=== PATIENT | male | born 1975 | race African-American/Black ===

== ENCOUNTER 2021-04-24 07:45 | Emergency (ER) | payer OTHER, SELFPAY ==
[2021-04-24] VITALS (11 sets, daily range): BP systolic 132–138; BP diastolic 82–86; PULSE 80–92; RESP 12–30; TEMP 36.4; O2SAT 95–100
--- NOTE | 2021-04-24 08:18 | DI.CT_ITS ---
Exam(s) CT ABDOMEN PELVIS WO EXAM: CT ABDOMEN PELVIS WO INDICATION: LUQ abd pain history of Pancreatitis. COMPARISON: No exams were available for comparison TECHNIQUE: CT examination was performed without contrast administration. FINDINGS: Images obtained through the lung bases are unremarkable. Visualized portions of the liver and splee n appear intact. There is peripancreatic fat edema and perhaps small quantity of free fluid adjacent to the pancreatic tail. No gross pancreatic mass or necrosis on this noncontrast study.. Gallbladder and bile ducts are CT normal. Abdominal aorta is of normal diameter. No significant abdominal wall hernia. No significant abdominal or pelvic adenopathy. Adrenals appear normal bilaterally. The kidneys are normal in size and shape. There is no evidence of a renal mass, hydronephrosis, or n ephrolithiasis. No ureteral dilatation or calcification identified. Urinary bladder is unremarkable in appearance. IMPRESSION: Findings suspicious for acute pancreatitis. Please correlate clinically.. RADIATION DOSE DELIVERED: 596.4mGy.cm DLP 596.4mGy.cm Total DLP !Error CTDIvol RADIATION OPTIMIZATION: All CT scans at this facility use at least one of these dose optimization te chniques: automated exposure control; mA and/or kV adjustment per patient size (includes targeted exa ms where dose is matched to clinical indication); or iterative reconstruction.
--- NOTE | 2021-04-24 08:29 | W.ED.GENAD ---
Discharge Plan Disposition Patient Disposition: AGAINST MEDICAL ADVICE Condition: Poor Discharge Details Clinical Impression: Acute alcoholic pancreatitis Primary Care Provider: [facility] ED Provider: Bacilio Alexandra Home Meds and New Rx's Prescriptions: Continued cetirizine 10 mg Tablet 10 mg PO DAILY 0RF folic acid 20 mg Capsule 20 mg PO DAILY 0RF losartan-hydrochlorothiazide 100-25 mg Tablet 1 tab PO DAILY 0RF citalopram 20 mg Tablet 20 mg PO DAILY 0RF metoprolol tartrate 25 mg Tablet 12.5 mg PO DAILY 0RF levetiracetam [Keppra] 1,000 mg Tablet 1,000 mg PO BID 0RF Discharge Instructions Instructions: Pancreatitis (ED) Additional Instructions: After thorough discussion of risk versus benefit you have chosen to leave AGAINST MEDICAL ADVICE. Again please understand that your condition may worsen which could lead to need of emergent surgery, worsening pain, discomfort, irreversible damage, or . It is recommended that you return to emergency department for any new or significant worsening of condition or if you change your mind. Your significant alcohol intake is a large contributing factor to your condition and it is recommended that you safely reduce and stop alcohol intake under the guidance of your primary care provider. It is recommended that you only drink water for the next 24 hours and you may slowly start with rice and very bland food starting tomorrow evening. If this causes any worsening of condition again it is recommended that you return to the emergency department for reevaluation. Discharge Data Discharge Date/Time-TO BE ENTERED AT DEPARTURE: 04/24/21 12:36 Medical Decision Making <Bacilio Alexandra NP - Last Filed: 04/27/21 08:28> Patient presenting to the emergency department for chief complaint of abdominal pain and vomiting. Patient reports that he has had symptoms last 2 days. Does report that they are somewhat similar to previous episode of pancreatitis not completely the same as he has not had as much pain or rigidity to his abdomen. Patient does report history of seizure disorder and previous episode of pancreatitis. At that time he drank significantly more alcohol but now he only drinks 8 beers per day. He does state this episode seemed to worsen with eating. Patient denies fever chills, respiratory or cardiac complaints. Physical exam shows soft abdomen with no rigidity or guarding but there is noted tenderness to both upper quadrant and epigastrium. Plan to check labs and CT imaging given patient's history of pancreatitis and top differential diagnosis at this time is pancreatitis versus alcoholic gastritis. Will treat pain pending results. Review of labs show a nondiagnostic CBC but no white count or shift noted, lactate slightly elevated at 2.0, anion gap of 15.2 with elevated AST and ALT and very slight hypomagnesemia at 1.7. Lipase is within normal limits of 320. UA shows slight urine ketones otherwise nondiagnostic. Spoke to radiologist and there are subtle findings to suggest acute pancreatitis. MPRESSION: Findings suspicious for acute pancreatitis. Please correlate clinically. Given patient's history along with significant alcohol intake I have concern for mild but acute pancreatitis. Discussed findings with patient and patient stated he was unwilling to be admitted at this time. Thoroughly discussed risk versus benefit including possible , surgery, pain, and potential for worsening of condition. Patient is alert and oriented x4 with full competent to make medical decisions. He states that even after discussion of risks that he would prefer to go home. Finished patient's fluids and gave him further pain control while in the emergency department. Informed patient that he is free to return to emergency department if he changes his mind or has any worsening of condition. RS. Patient seen, examined, and discussed with GAURAV Alexandra. I agree with treatment plan as discussed/documented. I had a lengthy conversation with the patient and discussed our recommendations regarding admission for treatment of pancreatitis. Patient provided informed refusal of recommended treatment plan. HPI <Bacilio Alexandra NP - Last Filed: 04/27/21 08:28> General Mode of arrival: ambulatory. Date/Time Provider Initiated Documentation: 04/24/21 08:10. Limitations to Documentation: no limitations. Information obtained by: patient. History of Present Illness 46 year old M presents to the emergency department with the chief complaint of Abd pain , described as severe and similar to prior episodes, with intensity rated at 10. Quality is described as aching and sharp, and is localized to the abdomen. Patient reports no radiation. Patient started experiencing this day(s) (2) and it has been constant. improves with No relieving factors improve symptom(s), Eating worsens symptoms . Patient notes no other symptoms.. Patient did receive the following treatments prior to arrival, other (Tums) Related Data Home Medications Medication Instructions Recorded Confirmed cetirizine 10 mg tablet 10 mg PO DAILY 04/24/21 04/24/21 citalopram 20 mg tablet 20 mg PO DAILY 04/24/21 04/24/21 folic acid 20 mg capsule 20 mg PO DAILY 04/24/21 04/24/21 levetiracetam 1,000 mg tablet 1,000 mg PO BID 04/24/21 04/24/21 (Keppra) losartan 100 1 tab PO DAILY 04/24/21 04/24/21 mg-hydrochlorothiazide 25 mg tablet metoprolol tartrate 25 mg tablet 12.5 mg PO DAILY 04/24/21 04/24/21 Allergies Allergy/AdvReac Type Severity Reaction Status Date / Time Iodine and Iodide Containing Allergy Other (See Verified 04/24/21 08:21 Produc Comment) General Stated Complaint: Abd Prob MATTEO: 3 Review of Systems <Bacilio Alexandra NP - Last Filed: 04/27/21 08:28> Constitutional Constitutional: Denies chills, Denies fever(s) and Reports poor appetite Cardiovascular Cardiovascular: Denies chest pain and Denies dyspnea Respiratory Respiratory: Denies cough and Denies dyspnea Gastrointestinal Gastrointestinal: Reports as per HPI, Reports abdominal pain, Denies melena, Denies change in bowel habits, Denies constipation, Denies diarrhea, Reports nausea and Reports vomiting Genitourinary Genitourinary: Denies hematuria, Denies difficulty urinating, Denies urinary hesitancy, Denies urinary incontinence and Denies urinary urgency Integumentary/Breasts Skin/Breast: Denies rash PFSH <Bacilio Alexandra NP - Last Filed: 04/27/21 08:28> All Active Problems (Updated 04/24/21 @ 11:31 by Bacilio Alexandra NP) Acute alcoholic pancreatitis (Acute) Seizure disorder (Chronic) Medical History (Updated 04/24/21 @ 11:31 by Bacilio Alexandra NP) Pancreatitis Social History Smoking/Tobacco Use Status: Current every day Tobacco Type: cigarettes Smoking risk assessment performed?: Yes Alcohol Intake: current Alcohol Intake frequency: 0-2 drinks per day Alcohol type: beer Substance use type: marijuana Exam <Bacilio Alexandra NP - Last Filed: 04/27/21 08:28> Const General: cooperative Orientation: alert, awake and oriented x3 Resp Effort & Inspection: normal respiratory effort and able to speak in complete sentences Auscultation: clear to auscultation bilaterally Cardio Rate: regular rate Rhythm: regular rhythm Heart Sounds: S1 normal and S2 normal GI Palpation: soft, not firm, no guarding, no masses, no pulsatile masses, not rigid, no splenomegaly and tender in the LUQ, in the RUQ and periumbilically; Negative for Moreno's sign negative Auscultation: normal bowel sounds Neuro General: patient alert, patient awake, patient oriented x3, gait normal and moves all extremities Course <Bacilio Alexandra NP - Last Filed: 04/27/21 08:28> Vital Signs Vital signs: Vital Signs Temperature 36.4 C L 04/24/21 07:54 Pulse 87 04/24/21 07:54 Respiratory Rate 25 H 04/24/21 07:54 Blood Pressure 138/86 04/24/21 07:54 Pulse Oximetry 100 04/24/21 07:54 Temperature 36.4 C L 04/24/21 07:54 Temperature Source Temporal Artery Scan 04/24/21 07:54 Pulse 82 04/24/21 07:58 Respiratory Rate 18 04/24/21 07:58 Respiratory Effort 04/24/21 08:02 Blood Pressure 138/86 04/24/21 07:58 Blood Pressure Position Supine 04/24/21 07:58 Pulse Oximetry 99 04/24/21 07:58 Oxygen Delivery Method Room Air 04/24/21 07:58 Oxygen Flow Rate 0 04/24/21 07:58 Pain Level 10 04/24/21 07:58 PAWSS <Bacilio Alexandra NP - Last Filed: 04/27/21 08:28> Have you Been Recently Intoxicated or Drunk Within the Last 30 days?: No Have you Ever Experienced Previous Episodes of Alcohol Withdrawal?: No Have you ever Experienced Withdrawal Seizures?: No Have you ever Experienced Delirium Tremens(DT)s?: No Have you ever undergone Alcohol Rehabilitation Treatment (i.e, inpt ot outpatient treatment programs)?: No Have you ever Experienced Blackouts?: No Have you ever Combined Alcohol with other Downers within the last 90 days?: No Have you ever Combined Alcohol with any other Substance of Abuse during the last 90 days?: No Positive Blood Alcohol level on Presentation? [PCS.BAL]: No Evidence of Increased Autonomic Activity (i.e. HR>120, tremor, sweating, agitation, nausea)?: No Result: 0 <Alexandru Paez MD - Last Filed: 05/15/21 07:53> Result: 0 Assessment & Plan <Bacilio Alexandra NP - Last Filed: 04/27/21 08:28> Plan Detail Instructions: Pancreatitis (ED) Total time on date of encounter, ([id number] and non [id number]) (minutes): 45 Time was spent: providing direct patient care, ordering diagnostics and/or referrals, documenting today's visit and updating the EMR <Alexandru Paez MD - Last Filed: 05/15/21 07:53> Plan Patient seen, examined, and discussed with GAURAV Alexandra. I agree with treatment plan as discussed/documented. I had a lengthy conversation with the patient and discussed our recommendations regarding admission for treatment of pancreatitis. Patient provided informed refusal of recommended treatment plan.
[2021-04-24 08:31] LABS: Abs Immature Grans 0.02 10^3/uL (0.0-0.06); Absolute Eosinophil Count 0.05 10^3/uL (0.0-0.7); Absolute Lymphocyte Count 1.93 10^3/uL (1.2-3.4); Absolute Monocyte Count 0.52 10^3/uL (0.1-0.8); Absolute Neutrophil Count 4.74 10^3/uL (1.2-6.7); Basophils % 1.4; Eosinophils % 0.7; Immature Grans % 0.3; Lymphocytes % 26.2; MCH 35.3 pg (27.0-33.0); MCV 100.8 fL (80-95); MPV 9.7 fL (8.0-11.0); Monocytes % 7.1; Neutrophils % 64.3; Nucleated RBC 0 %; Platelet Count 316 10^3/uL (130-400); RBC 3.97 10^6/uL (4.36-5.78); RDW 11.5 % (11.8-14.1); RDW-SD 42.2 fL; WBC 7.36 10^3/uL (4.4-10.8)
[2021-04-24] MEDS: HYDROmorphone 2 MG/ML VIAL 1 MG IVP ×2 (08:47→12:12)
[2021-04-24] MEDS: Ondansetron O.D.T. 4 MG TABEF PO (08:48)
[2021-04-24] MEDS: FAMOTIDINE 20 MG in Normal Saline 100 ML 400 MG IVPB (08:48)
[2021-04-24 09:15] LABS: ALT 76 U/L (16-63); AST 100 U/L (15-37); Albumin 4.1 g/dL (3.4-5.0); Alkaline Phosphatase 73 U/L (46-116); Anion Gap 15.2 mmol/L (3-11); BUN 10 mg/dL (7-18); Bilirubin, Total 0.5 mg/dL (0.2-1.0); CO2 23.8 mmol/L (21.0-32.0); CREATININE 0.9 mg/dL (0.70-1.30); Calcium 9.7 mg/dL (8.5-10.1); Chloride 98 mmol/L (98-107); Glucose 151 mg/dL (74-106); Lipase 320 U/L (73-393); Magnesium 1.7 mg/dL (1.8-2.4); Potassium 3.7 mmol/L (3.5-5.1); Sodium 137 mmol/L (136-145); Total Protein 7.6 g/dL (6.4-8.2); Troponin I < 50 ng/L (<or=60)
[2021-04-24 09:24] LABS: Bilirubin Negative (Negative); Blood Negative (Negative); Clarity Clear (Clear); Glucose Negative (Negative); Ketones 40 mg/dL (Negative); Leukocyte Esterase Negative (Negative); Nitrite Negative (Negative); Urobilinogen 0.2 EU/dL (Up TO 0.2); pH 7.5 (5-8)
[2021-04-24] MEDS: Normal Saline 1,000 ML 1000 ML IV (10:00)
== END 2021-04-24 12:36 | disposition left against medical advice (07) ==
PROVIDERS: Emergency Provider Nurse Practitioner Family
DX: K85.20 Alcohol induced acute pancreatitis without necrosis or infection (principal); Z53.29 Procedure and treatment not carried out because of patient's decision for other reasons
CPT/HCPCS: 36415; 80053; 83690; 96361; 96365; 96366; 96375; 96376; 99284; 74176; 81003; 83605; 83735; 84484; 85025

== ENCOUNTER 2021-09-16 22:20 | Emergency (ER) | payer OTHER, SELFPAY ==
[2021-09-16 22:34] VITALS: PULSE 65; RESP 15; TEMP 36.5; O2SAT 98
--- NOTE | 2021-09-16 22:44 | W.ED.GENAD ---
Discharge Plan Disposition Patient Disposition: HOME Condition: Stable Discharge Details Clinical Impression: Seizure disorder, Alcohol withdrawal Primary Care Provider: [facility] ED Provider: Alma Trent Home Meds and New Rx's Prescriptions: Continued cetirizine 10 mg Tablet 10 mg PO DAILY folic acid 20 mg Capsule 20 mg PO DAILY losartan-hydrochlorothiazide 100-25 mg Tablet 1 tab PO DAILY citalopram 20 mg Tablet 20 mg PO DAILY metoprolol tartrate 25 mg Tablet 12.5 mg PO DAILY levetiracetam [Keppra] 1,000 mg Tablet 1,000 mg PO BID Discharge Instructions Instructions: Dizziness (ED), Recurrent Seizures in Adults (ED) Additional Instructions: You were given a dose of your blood pressure medication and your seizure medications here in the department. Please take your seizure medication tomorrow am. Follow up with primary care provider in 3-5 days. Return to ED sooner if any worsening or concerns. Increase oral fluids. Please take Tylenol or Ibuprofen with food every 4-6 hours as needed for pain and swelling. Referrals: [facility] [Primary Care Provider] - 1 week Discharge Data Discharge Date/Time-TO BE ENTERED AT DEPARTURE: 09/17/21 01:32 Medical Decision Making 46-year-old female presents to the ER she is concerned that he may have a seizure. Patient was recently released from correction today for the last 2 days has been incarcerated has not received his blood pressure medication or seizure medication. He reports dizziness and blurry vision. She states is a precursor to seizures. He does normally take Keppra 1 mg p.o. twice daily and losartan or Cozaar 100 mg daily for blood pressure. He denies any other associated symptoms denies any drugs or alcohol recently. Last ETOH was 2 days ago. 1 gm Keppra ordered IV, Losarten 100mg PO ordered. Patient inadvertantly ripped out his IV while using the urinal. He did receive his Keppra IV prior to the IV removal. Patient reports that he began having emesis. He reports vomiting and nausea. Zofran 4 mg ODT, lorazepam 0.5 mg ordered p.o.. 0043: Patient has been having tremors, complaining of nausea, headache, diaphoresis. Suspect alcohol withdrawal. Orders placed for IV and labs. 0144: Patient reevaluation he reports that he feels fine. He would like she be discharged home we will allow him to wait until morning. Lab canceled. Medical Records Medical records reviewed: Yes I reviewed the patient's medical records. HPI General Mode of arrival: EMS. Date/Time Provider Initiated Documentation: 09/16/21 22:32. Limitations to Documentation: no limitations. Information obtained by: patient, EMS, RN notes reviewed and old records reviewed. HPI Narrative: 46-year-old female presents to the ER she is concerned that he may have a seizure. Patient was recently released from correction today for the last 2 days has been incarcerated has not received his blood pressure medication or seizure medication. He reports dizziness and blurry vision. She states is a precursor to seizures. He does normally take Keppra 1 mg p.o. twice daily and losartan or Cozaar 100 mg daily for blood pressure. He denies any other associated symptoms denies any drugs or alcohol recently. He did not drink ETOH since prior to his incarceration. He is a daily smoker. Alert and oriented x4 has no other associated symptoms or complaints. His blood pressure upon arrival was 157/93 Related Data Home Medications Medication Instructions Recorded Confirmed cetirizine 10 mg tablet 10 mg PO DAILY 04/24/21 09/16/21 citalopram 20 mg tablet 20 mg PO DAILY 04/24/21 09/16/21 folic acid 20 mg capsule 20 mg PO DAILY 04/24/21 09/16/21 levetiracetam 1,000 mg tablet 1,000 mg PO BID 04/24/21 09/16/21 (Keppra) losartan 100 1 tab PO DAILY 04/24/21 09/16/21 mg-hydrochlorothiazide 25 mg tablet metoprolol tartrate 25 mg tablet 12.5 mg PO DAILY 04/24/21 09/16/21 Allergies Allergy/AdvReac Type Severity Reaction Status Date / Time Iodine and Iodide Containing Allergy Other (See Verified 09/16/21 22:42 Produc Comment) amlodipine [From [facility]] AdvReac Unverified 09/16/21 22:44 lisinopril AdvReac Unverified 09/16/21 22:44 General Stated Complaint: Dizzy/Sync MATTEO: 3 Review of Systems All systems reviewed & are unremarkable except as noted in HPI and below Constitutional Constitutional: Reports as per HPI and Reports headache(s) ENT Ears, Nose, Mouth, and Throat: Reports dizziness, Reports headache(s) and Reports disequilibrium Gastrointestinal Gastrointestinal: Denies abdominal pain, Reports nausea and Reports vomiting Neurologic Neurologic: Reports as per HPI, Denies confusion, Reports dizziness, Reports headache(s) and Reports disequilibrium Psychiatric Psychiatric: Denies confusion PFSH All Active Problems (Updated 09/17/21 @ 00:23 by Alma Trent NP) Seizure disorder (Chronic) Alcohol withdrawal (Acute) Seizure disorder (Chronic) Medical History Pancreatitis Social History Smoking/Tobacco Use Status: Current every day Tobacco Type: cigarettes Smoking risk assessment performed?: Yes Alcohol Intake: current Alcohol Intake frequency: 0-2 drinks per day Alcohol type: beer Substance use type: marijuana Do you feel safe at home: Yes Do you feel safe in your relationship?: Yes Exam Narrative Exam Narrative: Constitutional: Alert and oriented x3. Appears stated age. Normal body habitus. Head: Normocephalic, no trauma. Eyes: Pupils PERRL, Red reflex noted, EOM's intact. Eyelids symmetrical without lesions, discharge, or swelling. ENT: Bilateral TM's WNL, External ear normal to inspection, no mastoid TTP, swelling, or erythema, Nasal turbinates WNL, no nasal discharge. Normal dentition, Posterior pharynx WNL, no exudate. Chest: RRR, Normal S1, S2, distal pulses intact. Resp: Lungs clear to auscultation bilaterally, no wheezes, rales, or rhonchi. Abdomen: Soft, non-distended, Normoactive bowel sounds all 4 quads. Musculoskeletal: Normal gait, 5/5 strength to all four extremities. Skin: No suspicious rashes or lesions. Capillary refill less than 2 sec. Neurologic: Cranial nerves II-XII intact. Alert and oriented x 3. Motor: No deficits noted. Sensory: Intact bilaterally all 4 extremities. Reflexes: DTR's intact bilaterally.. Hematologic/Lymphatic: No ecchymosis, no lymphadenopathy. Course Vital Signs Vital signs: Vital Signs Temperature 36.5 C 09/16/21 22:34 Pulse 65 09/16/21 22:34 Respiratory Rate 15 09/16/21 22:34 Pulse Oximetry 98 09/16/21 22:34 Temperature 36.5 C 09/16/21 22:34 Temperature Source Skin 09/16/21 22:34 Pulse 65 09/16/21 22:34 Respiratory Rate 15 09/16/21 22:34 Blood Pressure Position Supine 09/16/21 22:34 Pulse Oximetry 98 09/16/21 22:34 Oxygen Delivery Method Room Air 09/16/21 22:34 Oxygen Flow Rate 0 09/16/21 22:34 Pain Level 7 09/16/21 22:34
[2021-09-16] MEDS: Normal Saline 100 ML (23:14)
[2021-09-16] MEDS: Losartan 50 MG TAB 100 MG PO (23:14)
[2021-09-16] MEDS: levETIRAcetam 1,000 MG in Normal Saline 100 ML 400 MG IVPB (23:14)
[2021-09-16 23:33] VITALS: BP 134/86; PULSE 95; RESP 18; TEMP 36.6; O2SAT 95
[2021-09-17] MEDS: LORazepam 0.5 MG TAB PO (00:16)
[2021-09-17] MEDS: Ondansetron O.D.T. 4 MG TABEF PO (00:17)
[2021-09-17] MEDS: Acetaminophen 325 MG TAB 650 MG PO (00:36)
== END 2021-09-17 01:32 | disposition home or self-care (01) ==
PROVIDERS: Emergency Provider Registered Nurse Emergency
DX: G40.909 Epilepsy, unspecified, not intractable, without status epilepticus (principal); F10.239 Alcohol dependence with withdrawal, unspecified; Z91.14 Patient's other noncompliance with medication regimen; R11.2 Nausea with vomiting, unspecified
CPT/HCPCS: 80053; 83690; 96365; 99284; 80320; 83735; 85025; 99283; J1953

== ENCOUNTER 2021-09-20 11:01 | Emergency (ER) | payer OTHER, SELFPAY ==
[2021-09-20 11:06] VITALS: BP 138/93; PULSE 98; RESP 14; TEMP 36.9; O2SAT 99
== END 2021-09-20 11:25 ==
PROVIDERS: Emergency Provider Emergency Medicine
DX: Z53.21 Procedure and treatment not carried out due to patient leaving prior to being seen by health care provider (principal)

== ENCOUNTER 2021-09-20 11:36 | Emergency (ER) | payer OTHER, SELFPAY ==
--- NOTE | 2021-09-20 11:51 | W.ED.GENAD ---
Discharge Plan Disposition Patient Disposition: HOME Condition: Improving Discharge Details Clinical Impression: Seizure disorder Primary Care Provider: [facility] ED Provider: Sandoval Lee Home Meds and New Rx's Prescriptions: New levetiracetam [Keppra] 1,000 mg tablet 1,000 mg PO BID 30 Days Qty: 60 1RF No Action cetirizine 10 mg Tablet 10 mg PO DAILY folic acid 20 mg Capsule 20 mg PO DAILY losartan-hydrochlorothiazide 100-25 mg Tablet 1 tab PO DAILY citalopram 20 mg Tablet 20 mg PO DAILY metoprolol tartrate 25 mg Tablet 12.5 mg PO DAILY levetiracetam [Keppra] 1,000 mg Tablet 1,000 mg PO BID Discharge Instructions Instructions: Recurrent Seizures in Adults (ED) Additional Instructions: Please follow-up with your primary care physician and neurologist. Please return the emergency department if you need further assistance. Medical Decision Making 46-year-old male history of seizure disorder presents after missing his Keppra for the last 24 hours as he was in custody after being removed from his home for a restraining order. [place] as if the seizure was coming on earlier. No seizure activity. Alert oriented nontoxic no signs of trauma. No signs of intoxication. Neurologically intact ambulatory. Patient requesting food as they did not feed him in penitentiary also requesting a ride so that he can obtain his car and medications. Will dose of Keppra here will give a snack will contact [facility] for transportation. HPI General Date/Time Provider Initiated Documentation: 09/20/21 11:49. HPI Narrative: 46-year-old male history of seizure disorder, recently released from custody as he was removed from his home due to a restraining order, has been without his medications for a day, felt as if he was could have a seizure, no seizure activity, also has been without food. Requesting food and transportation back to his house we can obtain his belongings Related Data Home Medications Medication Instructions Recorded Confirmed cetirizine 10 mg tablet 10 mg PO DAILY 04/24/21 09/20/21 citalopram 20 mg tablet 20 mg PO DAILY 04/24/21 09/20/21 folic acid 20 mg capsule 20 mg PO DAILY 04/24/21 09/20/21 levetiracetam 1,000 mg tablet 1,000 mg PO BID 04/24/21 09/20/21 (Keppra) losartan 100 1 tab PO DAILY 04/24/21 09/20/21 mg-hydrochlorothiazide 25 mg tablet metoprolol tartrate 25 mg tablet 12.5 mg PO DAILY 04/24/21 09/20/21 levetiracetam 1,000 mg tablet 1,000 mg PO BID 30 days #60 tabs 09/20/21 (Keppra) Previous Rx's Medication Instructions Recorded levetiracetam 1,000 mg tablet 1,000 mg PO BID 30 days #60 tabs 09/20/21 (Keppra) Allergies Allergy/AdvReac Type Severity Reaction Status Date / Time Iodine and Iodide Containing Allergy Other (See Verified 09/20/21 11:10 Produc Comment) amlodipine [From [facility]] AdvReac Unverified 09/20/21 11:10 lisinopril AdvReac Unverified 09/20/21 11:10 General MATTEO: 4 Review of Systems Narrative: Review of Systems Constitutional: negative Eyes: negative ENT: negative Cardiovascular: negative Respiratory: negative Gastrointestinal: negative : negative Musculoskeletal: negative Skin: negative Neurologic: negative Psych: negative PFSH All Active Problems (Updated 09/20/21 @ 11:54 by Sandoval Lee MD) Seizure disorder (Chronic) Alcohol withdrawal (Acute) Seizure disorder (Chronic) Medical History Pancreatitis Social History Smoking/Tobacco Use Status: Current every day Tobacco Type: cigarettes Smoking risk assessment performed?: Yes Alcohol Intake: current Alcohol Intake frequency: 0-2 drinks per day Alcohol type: beer Substance use type: marijuana Do you feel safe at home: Yes Do you feel safe in your relationship?: Yes Exam Narrative Exam Narrative: Physical Examination General: alert, awake, cooperative, resting comfortably, no acute distress HEENT: normocephalic, atraumatic; PERRL, EOM intact, conjunctiva normal; no nasal discharge; moist mucous membranes, oral and pharyngeal mucosa normal, tolerating secretions Neck: supple, trachea midline; full ROM Chest: normal to inspection Respiratory: normal respiratory effort, speaking in full sentences, clear to auscultation, no wheezing, rales or rhonchi Cardiac: regular rate, regular rhythm, S1S2 intact, no murmurs rubs or gallops GI: abdomen soft, non-tender, non-distended; no palpable mass or hepatosplenomegaly Skin: no lesions, rashes or trauma appreciated Neuro: AAOx3, normal speech, moving all extremities; ambulatory without assistance no ataxia Psych: Appropriate mood and affect
[2021-09-20] MEDS: levETIRAcetam 500 MG TAB 1000 MG PO (12:12)
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
== END 2021-09-20 12:22 | disposition home or self-care (01) ==
PROVIDERS: Emergency Provider Emergency Medicine
DX: G40.909 Epilepsy, unspecified, not intractable, without status epilepticus (principal); F17.210 Nicotine dependence, cigarettes, uncomplicated
CPT/HCPCS: 99283